=== PATIENT | female | born 1980 | race Caucasian/White ===

== ENCOUNTER 2018-08-17 06:32 | Day surgery (SDC) | payer OTHER ==
[2018-08-16 12:04] LABS: CHLORIDE,CL 105 mmol/L (98-107); SODIUM,NA 141 mmol/L (136-145)
[~2018-08-17 06:32] MED LIST: Lactated Ringers 1,000 ML IV SCH; Sodium Chloride 0.9% 10 ML Syringe FLUSH PRN; Sodium Chloride 0.9% 2.5 ML Syringe FLUSH PRN; ceFAZolin 2 GM in Premix Bag 1 BAG IV ONE
--- NOTE | 2018-08-17 07:00 | PCM.PREANE ---
Preanesthetic Assessment - Anesthesia/Transfusion/Family Hx Anesthesia History: Prior Anesthesia Without Reaction Family History of Anesthesia Reaction: No Transfusion History: No Prior Transfusion(s) Intubation History: Unknown - Review of Systems General: No Symptoms Pulmonary: No Symptoms Cardiovascular: No Symptoms Gastrointestinal: No Symptoms Neurological: No Symptoms Other: Reports: None - Physical Assessment O2 Sat by Pulse Oximetry: 97 Respiratory Rate: 16 Vital Signs: Last Vital Signs Temp 36.4 C 08/17/18 06:50 Pulse 96 08/17/18 06:50 Resp 16 08/17/18 06:50 BP 125/75 08/17/18 06:50 Pulse Ox 97 08/17/18 06:50 Height: 1.64 m Weight: 119.748 kg ASA Class: 2 Mental Status: Alert & Oriented x3 Airway Class: Mallampati = 2 Dentition: Reports: Normal Dentition Thyro-Mental Finger Breadths: 3 Mouth Opening Finger Breadths: 2 ROM/Head Extension: Full Lungs: Clear to Auscultation, Normal Respiratory Effort Cardiovascular: Regular Rate, Regular Rhythm - Lab Values: Laboratory Last Values WBC 8.30 K/uL (4.0-11.0) 08/16/18 11:30 RBC 4.65 M/uL (4.30-5.90) 08/16/18 11:30 Hgb 13.4 g/dL (12.0-16.0) 08/16/18 11:30 Hct 40.8 % (36.0-46.0) 08/16/18 11:30 MCV 87.7 fL (80.0-98.0) 08/16/18 11:30 MCH 28.8 pg (27.0-32.0) 08/16/18 11:30 MCHC 32.8 g/dL (31.0-37.0) 08/16/18 11:30 RDW Std Deviation 40.9 fl (28.0-62.0) 08/16/18 11:30 RDW Coeff of John 13 % (11.0-15.0) 08/16/18 11:30 Plt Count 310 K/uL (150-400) 08/16/18 11:30 MPV 10.00 fL (7.40-12.00) 08/16/18 11:30 Nucleated RBC % 0.0 /100WBC 08/16/18 11:30 Nucleated RBCs # 0 K/uL 08/16/18 11:30 Sodium 141 mmol/L (136-145) 08/16/18 11:30 Potassium 4.4 mmol/L (3.5-5.1) 08/16/18 11:30 Chloride 105 mmol/L (98-107) 08/16/18 11:30 Carbon Dioxide 28.0 mmol/L (21.0-32.0) 08/16/18 11:30 BUN 9 mg/dL (7.0-18.0) 08/16/18 11:30 Creatinine 0.8 mg/dL (0.6-1.0) 08/16/18 11:30 Est Cr Clr Drug Dosing 82.42 mL/min 08/16/18 11:30 Estimated GFR (MDRD) > 60.0 ml/min 08/16/18 11:30 Glucose 85 mg/dL (74-106) 08/16/18 11:30 Calcium 9.7 mg/dL (8.5-10.1) 08/16/18 11:30 HCG, Qual NEGATIVE (NEG) 08/16/18 11:30 Blood Type A POSITIVE 08/16/18 11:30 Antibody Screen NEGATIVE 08/16/18 11:30 - Allergies Allergies/Adverse Reactions: Allergies Allergy/AdvReac Type Severity Reaction Status Date / Time acetaminophen [From Lortab] Allergy Anaphylactic Verified 08/17/18 06:53 Shock hydrocodone [From Lortab] Allergy Anaphylactic Verified 08/17/18 06:54 Shock - Blood Blood Available: No - Anesthesia Plan Pre-Op Medication Ordered: None - Acknowledgements Anesthesia Type Planned: General Anesthesia Pt an Appropriate Candidate for the Planned Anesthesia: Yes Alternatives and Risks of Anesthesia Discussed w Pt/Guardian: Yes Pt/Guardian Understands and Agrees with Anesthesia Plan: Yes PreAnesthesia Questionnaire HEENT History: Reports: Other (See Below) Other HEENT History: wears glasses Gastrointestinal History: Reports: Other (See Below) Other Gastrointestinal History: occasional heartburn Genitourinary History: Reports: None 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: Neurological History: Reports: Migraines Endocrine/Metabolic History: Reports: Obesity/BMI 30+ (BMI 44.6) - Past Surgical History Head Surgeries/Procedures: Reports: None GI Surgical History: Reports: Appendectomy, Cholecystectomy Female Surgical History: Reports: Endometrial Ablation Musculoskeletal Surgical History: Reports: Other (See Below) Other Musculoskeletal Surgeries/Procedures:: left wrist cyst excision, left foot fascia and benign tumor removal - SUBSTANCE USE Smoking Status *Q: Never Smoker Recreational Drug Use History: No - HOME MEDS Home Medications: Home Meds Acetaminophen [Tylenol Extra Strength] 2 tab PO ASDIRECTED PRN 08/12/18 [History ] - CURRENT (IN HOUSE) MEDS Current Meds: Current Medications Lactated Ringer's (Ringers, Lactated) 1,000 mls @ 125 mls/hr IV ASDIRECTED ROGER Last Admin: 08/17/18 06:54 Dose: 125 mls/hr Sodium Chloride (Saline Flush) 10 ml FLUSH ASDIRECTED PRN PRN Reason: Keep Vein Open Sodium Chloride (Saline Flush) 2.5 ml FLUSH ASDIRECTED PRN PRN Reason: Keep Vein Open Discontinued Medications Cefazolin Sodium/Dextrose 2 gm (/ Premix) 50 mls @ 100 mls/hr IV ONETIME ONE Stop: 08/17/18 06:29
[2018-08-17] MEDS ORDERED: Scopolamine 1.5 MG Transdermal Patch TRDERM PRN (07:22)
[2018-08-17] MEDS ORDERED: Scopolamine 1.5 MG Transdermal Patch ONE (07:28)
[2018-08-17] MEDS ORDERED: fentaNYL 100 MCG/2 ML SDV ONE ×2 (07:34→12:43)
[2018-08-17] MEDS ORDERED: Lidocaine 2% 5 ML SDV ONE (07:34)
[2018-08-17] MEDS ORDERED: Midazolam 1 MG/ML 2 ML SDV ONE (07:34)
[2018-08-17] MEDS ORDERED: Propofol 200 MG/20 ML SDV ONE (07:35)
[2018-08-17] MEDS ORDERED: Rocuronium 10 MG/ML 10 ML Syringe ONE (07:35)
[2018-08-17] MEDS ORDERED: fentaNYL 100 MCG/2 ML SDV IVPUSH PRN (08:59)
[2018-08-17] MEDS ORDERED: HYDROmorphone 2 MG/ML SDV IVPUSH ONE (09:00)
[2018-08-17] MEDS ORDERED: Fluorescein 5 ML Vial ONE (09:09)
[2018-08-17] MEDS ORDERED: Ondansetron 4 MG/2 ML SDV ONE ×2 (09:39→10:02)
[2018-08-17] MEDS ORDERED: Dexamethasone 4 MG/ML 5 ML MDV ONE (09:40)
[2018-08-17] MEDS ORDERED: Neostigmine Methylsulfate 1 MG/ML 5 ML Syringe ONE (10:03)
[2018-08-17] MEDS ORDERED: Glycopyrrolate 0.2 MG/ML SDV ONE (10:03)
[2018-08-17] MEDS: fentaNYL 100 MCG/2 ML SDV IVPUSH PRN ×2 (11:30→11:36)
[2018-08-17] MEDS ORDERED: HYDROmorphone 2 MG/ML Syringe ONE (11:42)
[2018-08-17] MEDS ORDERED: Ibuprofen 800 MG Tab PO PRN (12:00)
[2018-08-17] MEDS ORDERED: Promethazine 25 MG/ML SDV IM PRN (12:00)
[2018-08-17] MEDS ORDERED: Ondansetron 4 MG/2 ML SDV IVPUSH PRN (12:00)
[2018-08-17] MEDS ORDERED: Acetaminophen/oxyCODONE 325-5 MG Tab PO PRN (12:00)
[2018-08-17] MEDS ORDERED: Lactated Ringers 1,000 ML IV SCH (12:00)
[2018-08-17] MEDS ORDERED: Morphine 4 MG/ML Syringe IVPUSH PRN (12:00)
--- NOTE | 2018-08-17 12:09 | PCM.OPNOTE ---
- General Post-Op/Procedure Note Date of Surgery/Procedure: 08/17/18 Operative Procedure(s): Vaginal hysterectomy with left partial salpingectomy and cystoscopy Findings: Normal appearing uterus, tubes and ovaries. Left ovary and tube were adherent to the uterine fundus on the left side. Pre Op Diagnosis: Menorrhagia and Uterine fibriod Post-Op Diagnosis: Same Anesthesia Technique: General ET Tube Primary Surgeon: Mireille Varela Secondary Surgeon: Suzi Trevizo Pathology: Uteurs cervix and part of the left tube Fluid Replacement, Intraop: 3,000 Output, Urine Amount: 720 EBL in mLs: 500 Complications: None Condition: Good Free Text/Narrative:: Intake & Output 08/16/18 08/17/18 08/17/18 22:59 06:59 14:59 Output Total 700 Balance -700
[2018-08-17] MEDS: Ketorolac 30 MG/ML SDV IVPUSH SCH ×2 (12:55→19:16)
--- NOTE | 2018-08-17 13:02 | PCM.POSTAN ---
POST ANESTHESIA ASSESSMENT - MENTAL STATUS Mental Status: Alert, Oriented - RESPIRATORY Respiratory Status: Respiratory Rate WNL, Airway Patent, O2 Saturation Stable - CARDIOVASCULAR CV Status: Pulse Rate WNL, Blood Pressure Stable - GASTROINTESTINAL GI Status: No Symptoms - PAIN Pain Score: 6 - POST OP HYDRATION Hydration Status: Adequate & Stable - OBSERVATIONS Free Text/Narrative:: no anesthesia problems
[2018-08-17] MEDS: Acetaminophen/oxyCODONE 325-5 MG Tab PO PRN (15:01)
--- NOTE | 2018-08-17 17:18 | PCM.SURGPN ---
- General Info Date of Service: 08/17/18 POD#: 0 Functional Status: Reports: Pain Controlled, Tolerating Diet - Review of Systems General: Denies: Fever HEENT: Denies: Headaches Pulmonary: Denies: Shortness of Breath, Pleuritic Chest Pain Cardiovascular: Denies: Chest Pain, Palpitations, Dyspnea on Exertion Gastrointestinal: Denies: Abdominal Pain Genitourinary: Denies: Flank Pain - Patient Data Vitals - Most Recent: Last Vital Signs Temp 36.1 C 08/17/18 14:00 Pulse 60 08/17/18 14:00 Resp 16 08/17/18 14:00 BP 103/70 08/17/18 14:00 Pulse Ox 99 08/17/18 14:00 Weight - Most Recent: 264 lb I&O - Last 24 Hours: Intake & Output 08/17/18 08/17/18 08/17/18 06:59 14:59 22:59 Intake Total 6600 Output Total 1420 Balance 5180 Med Orders - Current: Current Medications Fentanyl (Sublimaze) 50 - 100 mcg IVPUSH Q5M PRN PRN Reason: Pain (severe 7-10) Fentanyl (Sublimaze) 50 mcg IVPUSH Q5M PRN PRN Reason: Pain (severe 7-10) Stop: 08/18/18 09:56 Last Admin: 08/17/18 11:36 Dose: 50 mcg Lactated Ringer's (Ringers, Lactated) 1,000 mls @ 125 mls/hr IV ASDIRECTED [facility] Last Admin: 08/17/18 15:01 Dose: 125 mls/hr Ibuprofen (Motrin) 800 mg PO Q6H PRN PRN Reason: Pain (mild 1-3) Ketorolac Tromethamine (Toradol) 30 mg IVPUSH Q6H [facility] Stop: 08/22/18 12:01 Last Admin: 08/17/18 12:55 Dose: 30 mg Morphine Sulfate (Morphine) 4 mg IVPUSH Q2H PRN PRN Reason: Pain (severe 7-10) Ondansetron HCl (Zofran) 4 mg IVPUSH Q6H PRN PRN Reason: Nausea/Vomiting Oxycodone/Acetaminophen (Percocet 325-5 Mg) 1 tab PO Q4H PRN PRN Reason: Pain (moderate 4-6) Last Admin: 08/17/18 15:01 Dose: 1 tab Oxycodone/Acetaminophen (Percocet 325-5 Mg) 2 tab PO Q4H PRN PRN Reason: Pain (moderate 4-6) Promethazine HCl (Phenergan) 25 mg IM Q6H PRN PRN Reason: Nausea/Vomiting Scopolamine (Transderm-Scop) 1.5 mg TRDERM Q72H PRN PRN Reason: Nausea Last Admin: 08/17/18 07:31 Dose: 1.5 mg Discontinued Medications Dexamethasone (Dexamethasone) Confirm Administered Dose 20 mg .ROUTE .STK-MED ONE Stop: 08/17/18 09:41 Fentanyl (Sublimaze) Confirm Administered Dose 100 mcg .ROUTE .STK-MED ONE Stop: 08/17/18 07:35 Fentanyl (Sublimaze) Confirm Administered Dose 100 mcg .ROUTE .STK-MED ONE Stop: 08/17/18 12:44 Fluorescein Sodium (Ak-Fluor) Confirm Administered Dose 5 ml .ROUTE .STK-MED ONE Stop: 08/17/18 09:10 Glycopyrrolate (Robinul) Confirm Administered Dose 0.8 mg .ROUTE .STK-MED ONE Stop: 08/17/18 10:04 Hydromorphone HCl (Dilaudid) 2 mg IVPUSH ONETIME ONE Stop: 08/17/18 09:01 Last Admin: 08/17/18 11:42 Dose: 2 mg Hydromorphone HCl (Dilaudid) Confirm Administered Dose 2 mg .ROUTE .STK-MED ONE Stop: 08/17/18 11:43 Cefazolin Sodium/Dextrose 2 gm (/ Premix) 50 mls @ 100 mls/hr IV ONETIME ONE Stop: 08/17/18 06:29 Lactated Ringer's (Ringers, Lactated) 1,000 mls @ 125 mls/hr IV ASDIRECTED ROGER Last Admin: 08/17/18 06:54 Dose: 125 mls/hr Lidocaine (Xylocaine-Mpf 2%) Confirm Administered Dose 5 ml .ROUTE .STK-MED ONE Stop: 08/17/18 07:35 Midazolam HCl (Versed 1 Mg/Ml) Confirm Administered Dose 2 mg .ROUTE .STK-MED ONE Stop: 08/17/18 07:35 Neostigmine Methylsulfate (Neostigmine) Confirm Administered Dose 5 mg .ROUTE .STK-MED ONE Stop: 08/17/18 10:04 Ondansetron HCl (Zofran) Confirm Administered Dose 8 mg .ROUTE .STK-MED ONE Stop: 08/17/18 09:40 Ondansetron HCl (Zofran) Confirm Administered Dose 8 mg .ROUTE .STK-MED ONE Stop: 08/17/18 10:03 Propofol (Diprivan 20 Ml) Confirm Administered Dose 200 mg .ROUTE .STK-MED ONE Stop: 08/17/18 07:36 Rocuronium Otoe (Zemuron) Confirm Administered Dose 100 mg .ROUTE .STK-MED ONE Stop: 08/17/18 07:36 Scopolamine (Transderm-Scop) Confirm Administered Dose 1.5 mg .ROUTE .STK-MED ONE Stop: 08/17/18 07:29 Sodium Chloride (Saline Flush) 10 ml FLUSH ASDIRECTED PRN PRN Reason: Keep Vein Open Sodium Chloride (Saline Flush) 2.5 ml FLUSH ASDIRECTED PRN PRN Reason: Keep Vein Open - Exam General: Alert, Oriented Lungs: Clear to Auscultation, Normal Respiratory Effort Cardiovascular: Regular Rate, Regular Rhythm GI/Abdominal Exam: Normal Bowel Sounds, Soft, Tender (mild: lower abdomen) Extremities: Non-Tender Psy/Mental Status: Alert, Normal Affect, Normal Mood - Problem List & Annotations (1) S/P vaginal hysterectomy SNOMED Code(s): 205598866, 068271225 Code(s): Z90.710 - ACQUIRED ABSENCE OF BOTH CERVIX AND UTERUS Status: Acute Current Visit: Yes (2) Menorrhagia SNOMED Code(s): 249346161 Code(s): N92.0 - EXCESSIVE AND FREQUENT MENSTRUATION WITH REGULAR CYCLE Status: Acute Current Visit: Yes Qualifiers: Menorrahagia type: with regular cycle Qualified Code(s): N92.0 - Excessive and frequent menstruation with regular cycle - Problem List Review Problem List Initiated/Reviewed/Updated: Yes - My Orders Last 24 Hours: Active Orders 24 hr Category Date Time Status Patient Status [ADT] Routine ADT 08/17/18 12:01 Active Antiembolic Devices [RC] PER UNIT ROUTINE Care 08/17/18 05:00 Inactive Antiembolic Devices [RC] PER UNIT ROUTINE Care 08/17/18 12:01 Active Intake and Output [RC] PER UNIT ROUTINE Care 08/17/18 12:03 Active Notify Provider Intake and Out [RC] ASDIRECTED Care 08/17/18 12:01 Active Notify Provider Vital Signs [RC] ASDIRECTED Care 08/17/18 12:01 Active Oxygen Therapy [RC] ASDIRECTED Care 08/17/18 12:01 Active Procedure Prep Instructions [RC] PER UNIT ROUTINE Care 08/17/18 05:00 Inactive Procedure Site Prep Instruct [RC] PER UNIT ROUTINE Care 08/17/18 05:00 Inactive RT Incentive Spirometry [RC] Q2HWA Care 08/17/18 12:01 Active Up With Assistance [RC] PER UNIT ROUTINE Care 08/17/18 12:01 Active Up ad Malgorzata [RC] PER UNIT ROUTINE Care 08/17/18 12:01 Active Urinary Catheter Removal [RC] Per Unit Routine Care 08/17/18 12:01 Active Verify Patient Consent Obtain [RC] PER UNIT ROUTINE Care 08/17/18 05:00 Inactive Vital Signs [RC] PER UNIT ROUTINE Care 08/17/18 05:00 Inactive Vital Signs [RC] PER UNIT ROUTINE Care 08/17/18 12:01 Active Regular Diet [DIET] Diet 08/17/18 Dinner Active BASIC METABOLIC PANEL,BMP [CHEM] AM Lab 08/18/18 05:11 Ordered CBC WITH AUTO DIFF [HEME] AM Lab 08/18/18 05:11 Ordered Acetaminophen/oxyCODONE [Percocet 325-5 MG] Med 08/17/18 12:00 Active 1 tab PO Q4H PRN Acetaminophen/oxyCODONE [Percocet 325-5 MG] Med 08/17/18 12:00 Active 2 tab PO Q4H PRN Ibuprofen [Motrin] Med 08/17/18 12:00 Active 800 mg PO Q6H PRN Ketorolac [Toradol] Med 08/17/18 12:00 Active 30 mg IVPUSH Q6H Lactated Ringers [Ringers, Lactated] 1,000 ml Med 08/17/18 12:00 Active IV ASDIRECTED Morphine Med 08/17/18 12:00 Active 4 mg IVPUSH Q2H PRN Ondansetron [Zofran] Med 08/17/18 12:00 Active 4 mg IVPUSH Q6H PRN Promethazine [Phenergan] Med 08/17/18 12:00 Active 25 mg IM Q6H PRN Scopolamine [Transderm-Scop] Med 08/17/18 07:22 Active 1.5 mg TRDERM Q72H PRN fentaNYL [Sublimaze] Med 08/17/18 08:59 Active 50 - 100 mcg IVPUSH Q5M PRN fentaNYL [Sublimaze] Med 08/17/18 09:56 Active 50 mcg IVPUSH Q5M PRN Peripheral IV Discontinue [OM.PC] Routine Oth 08/17/18 12:01 Ordered Remove Vaginal Packing [OM.PC] Per Unit Routine Oth 08/17/18 12:03 Ordered Sequential Compression Device [OM.PC] Per Unit Routine Oth 08/17/18 12:01 Ordered Resuscitation Status Routine Resus Stat 08/17/18 12:00 Ordered Medication Orders Fentanyl (Sublimaze) 50 - 100 mcg IVPUSH Q5M PRN PRN Reason: Pain (severe 7-10) Fentanyl (Sublimaze) 50 mcg IVPUSH Q5M PRN PRN Reason: Pain (severe 7-10) Stop: 08/18/18 09:56 Last Admin: 08/17/18 11:36 Dose: 50 mcg Admin: 08/17/18 11:30 Dose: 50 mcg Lactated Ringer's (Ringers, Lactated) 1,000 mls @ 125 mls/hr IV ASDIRECTED [facility] Last Admin: 08/17/18 15:01 Dose: 125 mls/hr Ibuprofen (Motrin) 800 mg PO Q6H PRN PRN Reason: Pain (mild 1-3) Ketorolac Tromethamine (Toradol) 30 mg IVPUSH Q6H [facility] Stop: 08/22/18 12:01 Last Admin: 08/17/18 12:55 Dose: 30 mg Morphine Sulfate (Morphine) 4 mg IVPUSH Q2H PRN PRN Reason: Pain (severe 7-10) Ondansetron HCl (Zofran) 4 mg IVPUSH Q6H PRN PRN Reason: Nausea/Vomiting Oxycodone/Acetaminophen (Percocet 325-5 Mg) 1 tab PO Q4H PRN PRN Reason: Pain (moderate 4-6) Last Admin: 02/04/19 15:01 Dose: 1 tab Oxycodone/Acetaminophen (Percocet 325-5 Mg) 2 tab PO Q4H PRN PRN Reason: Pain (moderate 4-6) Promethazine HCl (Phenergan) 25 mg IM Q6H PRN PRN Reason: Nausea/Vomiting Scopolamine (Transderm-Scop) 1.5 mg TRDERM Q72H PRN PRN Reason: Nausea Last Admin: 08/17/18 07:31 Dose: 1.5 mg - Assessment Assessment (Free Text/Narrative):: POD#0 s/p vaginal hysterectomy with left partial salpingectomy and cystoscopy clinically stable and afebrile - Plan Plan (Free Text/Narrative):: Encourage to use incentive spirometer Remove Phillips and vaginal packing tonight Aim discharge in the am
[2018-08-17] MEDS ORDERED: Morphine 2 MG/ML Syringe IVPUSH PRN (17:23)
[2018-08-18] MEDS: Ketorolac 30 MG/ML SDV IVPUSH SCH (00:13)
--- NOTE | 2018-08-18 01:28 | OR ---
SURGEON: Mireille Varela MD DATE OF PROCEDURE: 08/17/2018 BOAT LABORER: Dr. Suzi Trevizo. PREOPERATIVE DIAGNOSES: 1. Menorrhagia. 2. Fibroid uterus. POSTOPERATIVE DIAGNOSES: 1. Menorrhagia. 2. Fibroid uterus. PROCEDURE: Vaginal hysterectomy with partial left salpingectomy and cystoscopy. ESTIMATED BLOOD LOSS: 500 mL. ANESTHESIA: General endotracheal. INTRAVENOUS FLUIDS: 3800 mL of crystalloid. URINE OUTPUT: 750 mL. COMPLICATIONS: None. FINDINGS: 8 to 9 weeks' size uterus. Left ovary and tube was found to be adherent to the fundus of the uterus. Normal-appearing ovaries bilaterally. No bladder mucosa trauma and efflux of florescence dye seen from both ureteral orifices DISPOSITION: Patient was taken to the recovery room in a stable condition. PROCEDURE IN DETAIL: The patient is a 38-year-old lady who has had ongoing difficulties with menorrhagia status post endometrial ablation. Recent ultrasound showed a small intramural fibroid, office-based Pipelle biopsy retrieved scanty amount of endometrial tissue which was reported as benign. Management options were discussed with the patient, and she opted to proceed with surgical intervention in form of hysterectomy. She opted to retain ovaries and tubes if they normal in appearance intraoperatively. Surgical expectations, alternatives, and consents were obtained. The patient was taken to the operating room where induction of general anesthesia was performed without difficulty. She was then placed in modified dorsal lithotomy position and was prepped and draped in the usual sterile fashion for vaginal surgery. Phillips was placed to gravity. SCDs were in the lower extremities and she received 2 g of Ancef. Appropriate time- out was then performed. A medium weighted speculum was placed into the posterior wall of the vagina and the vaginal wall was retracted anteriorly and laterally with sidewall retractors. The cervix was grasped with a Tejas clamp and the cervix was then circumscribed with electrocautery using the Bovie. The mucosa anteriorly and posteriorly were then gently, sharply, and bluntly dissected off the underlying peritoneum. The posterior peritoneum was then entered sharply creating a posterior colpotomy and the weighted speculum was then exchanged for a longer weighted speculum. Anteriorly, gentle blunt dissection was performed until the peritoneal layer was identified, tilted upwards, and entered sharply and then the bladder was then retracted cephalad using the vaginal wall retractor. In serial fashion, Dequan clamps were utilized on either side to secure the uterosacral ligaments, the base of the cardinal ligaments and the broad ligaments. The left ovary and tube were found to be flimsy adherent to the fundus of the uterus on the left side. I was able to gently tease of the ovary which was normal in appearance, but the tube was firmly adherent to the fundus of the uterus, hence while the uterotubal ovarian ligament on that side was being transected, the left tube was also removed along with that pedicle. All sutures were ligated with 2-0 Vicryl. Once the uterus was freed, it was removed and from the operating site. Sponge stick was then placed in order to visualize the operative site well and noted was that the patient had very friable tissues and that the posterior peritoneum had shed off from its base and this area was bleeding. The posterior peritoneum was then identified and clamped with Allis clamps and this was oversewn with 2-0 Vicryl starting from the left to the right side. The pedicles were then all inspected, and on the left side was noted a bleeder that was grabbed with Dequan clamp and suture ligated with 2-0 Vicryl. Once this was performed, the area was hemostatic. The pedicles were then inspected for hemostasis. The retained uterosacral ligament pedicles were then transfixed on ipsilateral side to the apices. Once the operating field was found to be hemostatic, the vaginal cuff was then closed in a running fashion using 0 Vicryl suture. The Phillips catheter was removed and the patient was given IV fluorescein. The cystoscopy was performed and there were no injuries to the bladder mucosa and both ureteral orifices were visualized with urine exuding from them freely. The Phillips balloon was reinserted. The vaginal mucosa was reexamined and no active bleeding was noted, but due to the fact that the posterior peritoneum had been oozing, I have decided to insert the vaginal packing, this was placed. The patient was then taken to the recovery room in stable condition. She tolerated the procedure well. Sponge, instrument, and needle counts were reported as correct. ADUMVIV / MODL /[id number] CHIO
[2018-08-18 05:17] LABS: CHLORIDE,CL 107 mmol/L (98-107); SODIUM,NA 140 mmol/L (136-145)
--- NOTE | 2018-08-18 06:36 | PCM.SURGPN ---
- General Info Date of Service: 08/18/18 POD#: 1 Functional Status: Reports: Pain Controlled, Tolerating Diet, Ambulating, Urinating - Review of Systems General: Denies: Fever, Weakness HEENT: Denies: Headaches Pulmonary: Denies: Shortness of Breath, Pleuritic Chest Pain Cardiovascular: Denies: Chest Pain, Palpitations, Dyspnea on Exertion Gastrointestinal: Denies: Abdominal Pain, Nausea, Vomiting Genitourinary: Denies: Dysuria, Incontinence, Flank Pain - Patient Data Vitals - Most Recent: Last Vital Signs Temp 36.4 C 08/18/18 03:00 Pulse 77 08/17/18 15:35 Resp 16 08/18/18 03:00 BP 118/60 08/18/18 03:00 Pulse Ox 95 08/18/18 03:00 Weight - Most Recent: 264 lb I&O - Last 24 Hours: Intake & Output 08/17/18 08/17/18 08/18/18 14:59 22:59 06:59 Intake Total 6600 600 800 Output Total 7552 103 2969 Balance 5180 -350 -1350 Lab Results Last 24 Hrs: Laboratory Results - last 24 hr 08/18/18 08/18/18 Range/Units 04:34 04:34 WBC 12.88 H (4.0-11.0) K/uL RBC 3.87 L (4.30-5.90) M/uL Hgb 11.1 L (12.0-16.0) g/dL Hct 33.9 L (36.0-46.0) % MCV 87.6 (80.0-98.0) fL MCH 28.7 (27.0-32.0) pg MCHC 32.7 (31.0-37.0) g/dL RDW Std Deviation 41.0 (28.0-62.0) fl RDW Coeff of John 13 (11.0-15.0) % Plt Count 284 (150-400) K/uL MPV 10.00 (7.40-12.00) fL Neut % (Auto) 85.2 H (48.0-80.0) % Lymph % (Auto) 10.7 L (16.0-40.0) % [place] % (Auto) 4.1 (0.0-15.0) % Eos % (Auto) 0.0 (0.0-7.0) % Baso % (Auto) 0.0 (0.0-1.5) % Neut # (Auto) 11.0 H (1.4-5.7) K/uL Lymph # (Auto) 1.4 (0.6-2.4) K/uL [place] # (Auto) 0.5 (0.0-0.8) K/uL Eos # (Auto) 0.0 (0.0-0.7) K/uL Baso # (Auto) 0.0 (0.0-0.1) K/uL Nucleated RBC % 0.0 /100WBC Nucleated RBCs # 0 K/uL Sodium 140 (136-145) mmol/L Potassium 4.1 (3.5-5.1) mmol/L Chloride 107 (98-107) mmol/L Carbon Dioxide 26.9 (21.0-32.0) mmol/L BUN 7 (7.0-18.0) mg/dL Creatinine 0.7 (0.6-1.0) mg/dL Est Cr Clr Drug Dosing 94.19 mL/min Estimated GFR (MDRD) > 60.0 ml/min Glucose 127 H (74-106) mg/dL Calcium 9.1 (8.5-10.1) mg/dL Med Orders - Current: Current Medications Fentanyl (Sublimaze) 50 - 100 mcg IVPUSH Q5M PRN PRN Reason: Pain (severe 7-10) Fentanyl (Sublimaze) 50 mcg IVPUSH Q5M PRN PRN Reason: Pain (severe 7-10) Stop: 08/18/18 09:56 Last Admin: 08/17/18 11:36 Dose: 50 mcg Lactated Ringer's (Ringers, Lactated) 1,000 mls @ 125 mls/hr IV ASDIRECTED [facility] Last Admin: 08/17/18 15:01 Dose: 125 mls/hr Ibuprofen (Motrin) 800 mg PO Q6H PRN PRN Reason: Pain (mild 1-3) Last Admin: 08/18/18 01:38 Dose: 800 mg Ketorolac Tromethamine (Toradol) 30 mg IVPUSH Q6H [facility] Stop: 08/22/18 12:01 Last Admin: 08/18/18 00:13 Dose: 30 mg Morphine Sulfate (Morphine) 4 mg IVPUSH Q2H PRN PRN Reason: Pain (severe 7-10) Last Admin: 08/17/18 17:33 Dose: 4 mg Ondansetron HCl (Zofran) 4 mg IVPUSH Q6H PRN PRN Reason: Nausea/Vomiting Oxycodone/Acetaminophen (Percocet 325-5 Mg) 1 tab PO Q4H PRN PRN Reason: Pain (moderate 4-6) Last Admin: 08/17/18 15:01 Dose: 1 tab Oxycodone/Acetaminophen (Percocet 325-5 Mg) 2 tab PO Q4H PRN PRN Reason: Pain (moderate 4-6) Promethazine HCl (Phenergan) 25 mg IM Q6H PRN PRN Reason: Nausea/Vomiting Scopolamine (Transderm-Scop) 1.5 mg TRDERM Q72H PRN PRN Reason: Nausea Last Admin: 08/17/18 07:31 Dose: 1.5 mg Discontinued Medications Dexamethasone (Dexamethasone) Confirm Administered Dose 20 mg .ROUTE .STK-MED ONE Stop: 08/17/18 09:41 Fentanyl (Sublimaze) Confirm Administered Dose 100 mcg .ROUTE .STK-MED ONE Stop: 08/17/18 07:35 Fentanyl (Sublimaze) Confirm Administered Dose 100 mcg .ROUTE .STK-MED ONE Stop: 08/17/18 12:44 Fluorescein Sodium (Ak-Fluor) Confirm Administered Dose 5 ml .ROUTE .STK-MED ONE Stop: 08/17/18 09:10 Glycopyrrolate (Robinul) Confirm Administered Dose 0.8 mg .ROUTE .STK-MED ONE Stop: 08/17/18 10:04 Hydromorphone HCl (Dilaudid) 2 mg IVPUSH ONETIME ONE Stop: 08/17/18 09:01 Last Admin: 08/17/18 11:42 Dose: 2 mg Hydromorphone HCl (Dilaudid) Confirm Administered Dose 2 mg .ROUTE .STK-MED ONE Stop: 08/17/18 11:43 Last Admin: 08/17/18 17:54 Dose: Not Given Cefazolin Sodium/Dextrose 2 gm (/ Premix) 50 mls @ 100 mls/hr IV ONETIME ONE Stop: 08/17/18 06:29 Last Admin: 08/17/18 17:54 Dose: Not Given Lactated Ringer's (Ringers, Lactated) 1,000 mls @ 125 mls/hr IV ASDIRECTED [facility] Last Admin: 08/17/18 06:54 Dose: 125 mls/hr Lidocaine (Xylocaine-Mpf 2%) Confirm Administered Dose 5 ml .ROUTE .STK-MED ONE Stop: 08/17/18 07:35 Midazolam HCl (Versed 1 Mg/Ml) Confirm Administered Dose 2 mg .ROUTE .STK-MED ONE Stop: 08/17/18 07:35 Morphine Sulfate (Morphine) 4 mg IVPUSH Q2H PRN PRN Reason: Pain (severe 7-10) Neostigmine Methylsulfate (Neostigmine) Confirm Administered Dose 5 mg .ROUTE .STK-MED ONE Stop: 08/17/18 10:04 Ondansetron HCl (Zofran) Confirm Administered Dose 8 mg .ROUTE .STK-MED ONE Stop: 08/17/18 09:40 Ondansetron HCl (Zofran) Confirm Administered Dose 8 mg .ROUTE .STK-MED ONE Stop: 08/17/18 10:03 Propofol (Diprivan 20 Ml) Confirm Administered Dose 200 mg .ROUTE .STK-MED ONE Stop: 08/17/18 07:36 Rocuronium [place] (Zemuron) Confirm Administered Dose 100 mg .ROUTE .STK-MED ONE Stop: 08/17/18 07:36 Scopolamine (Transderm-Scop) Confirm Administered Dose 1.5 mg .ROUTE .STK-MED ONE Stop: 08/17/18 07:29 Last Admin: 08/17/18 17:54 Dose: Not Given Sodium Chloride (Saline Flush) 10 ml FLUSH ASDIRECTED PRN PRN Reason: Keep Vein Open Sodium Chloride (Saline Flush) 2.5 ml FLUSH ASDIRECTED PRN PRN Reason: Keep Vein Open - Exam Wound/Incisions: No Drainage General: Alert, Oriented HEENT: Pupils Equal Neck: Supple Lungs: Clear to Auscultation, Normal Respiratory Effort Cardiovascular: Regular Rate, Regular Rhythm GI/Abdominal Exam: Normal Bowel Sounds, Soft, Non-Tender Extremities: Non-Tender, No Pedal Edema Skin: Warm Psy/Mental Status: Alert, Normal Affect, Normal Mood - Problem List & Annotations (1) S/P vaginal hysterectomy SNOMED Code(s): 252737434, 948754929 Code(s): Z90.710 - ACQUIRED ABSENCE OF BOTH CERVIX AND UTERUS Status: Acute Current Visit: Yes (2) Menorrhagia SNOMED Code(s): 558352257 Code(s): N92.0 - EXCESSIVE AND FREQUENT MENSTRUATION WITH REGULAR CYCLE Status: Resolved Current Visit: Yes Qualifiers: Menorrahagia type: with regular cycle Qualified Code(s): N92.0 - Excessive and frequent menstruation with regular cycle - Problem List Review Problem List Initiated/Reviewed/Updated: Yes - My Orders Last 24 Hours: Active Orders 24 hr Category Date Time Status Patient Status [ADT] Routine ADT 08/17/18 12:01 Active Antiembolic Devices [RC] PER UNIT ROUTINE Care 08/17/18 12:01 Active Intake and Output [RC] PER UNIT ROUTINE Care 08/17/18 12:03 Active Notify Provider Intake and Out [RC] ASDIRECTED Care 08/17/18 12:01 Active Notify Provider Vital Signs [RC] ASDIRECTED Care 08/17/18 12:01 Active Oxygen Therapy [RC] ASDIRECTED Care 08/17/18 12:01 Active RT Incentive Spirometry [RC] Q2HWA Care 08/17/18 12:01 Active Up With Assistance [RC] PER UNIT ROUTINE Care 08/17/18 12:01 Active Up ad [place] [RC] PER UNIT ROUTINE Care 08/17/18 12:01 Active Urinary Catheter Removal [RC] Per Unit Routine Care 08/17/18 12:01 Active Vital Signs [RC] PER UNIT ROUTINE Care 08/17/18 12:01 Active Regular Diet [DIET] Diet 08/17/18 Dinner Active Acetaminophen/oxyCODONE [Percocet 325-5 MG] Med 08/17/18 12:00 Active 1 tab PO Q4H PRN Acetaminophen/oxyCODONE [Percocet 325-5 MG] Med 08/17/18 12:00 Active 2 tab PO Q4H PRN Ibuprofen [Motrin] Med 08/17/18 12:00 Active 800 mg PO Q6H PRN Ketorolac [Toradol] Med 08/17/18 12:00 Active 30 mg IVPUSH Q6H Lactated Ringers [Ringers, Lactated] 1,000 ml Med 08/17/18 12:00 Active IV ASDIRECTED Morphine Med 08/17/18 17:23 Active 4 mg IVPUSH Q2H PRN Ondansetron [Zofran] Med 08/17/18 12:00 Active 4 mg IVPUSH Q6H PRN Promethazine [Phenergan] Med 08/17/18 12:00 Active 25 mg IM Q6H PRN Scopolamine [Transderm-Scop] Med 08/17/18 07:22 Active 1.5 mg TRDERM Q72H PRN fentaNYL [Sublimaze] Med 08/17/18 08:59 Active 50 - 100 mcg IVPUSH Q5M PRN fentaNYL [Sublimaze] Med 08/17/18 09:56 Active 50 mcg IVPUSH Q5M PRN Peripheral IV Discontinue [OM.PC] Routine Oth 08/17/18 12:01 Ordered Remove Vaginal Packing [OM.PC] Per Unit Routine Oth 08/17/18 12:03 Ordered Sequential Compression Device [OM.PC] Per Unit Routine Oth 08/17/18 12:01 Ordered Resuscitation Status Routine Resus Stat 08/17/18 12:00 Ordered Medication Orders Fentanyl (Sublimaze) 50 - 100 mcg IVPUSH Q5M PRN PRN Reason: Pain (severe 7-10) Fentanyl (Sublimaze) 50 mcg IVPUSH Q5M PRN PRN Reason: Pain (severe 7-10) Stop: 08/18/18 09:56 Last Admin: 08/17/18 11:36 Dose: 50 mcg Admin: 08/17/18 11:30 Dose: 50 mcg Lactated Ringer's (Ringers, Lactated) 1,000 mls @ 125 mls/hr IV ASDIRECTED [facility] Last Admin: 08/17/18 15:01 Dose: 125 mls/hr Ibuprofen (Motrin) 800 mg PO Q6H PRN PRN Reason: Pain (mild 1-3) Last Admin: 08/18/18 01:38 Dose: 800 mg Ketorolac Tromethamine (Toradol) 30 mg IVPUSH Q6H [facility] Stop: 08/22/18 12:01 Last Admin: 08/18/18 00:13 Dose: 30 mg Admin: 08/17/18 19:16 Dose: 30 mg Admin: 08/17/18 12:55 Dose: 30 mg Morphine Sulfate (Morphine) 4 mg IVPUSH Q2H PRN PRN Reason: Pain (severe 7-10) Last Admin: 08/17/18 17:33 Dose: 4 mg Ondansetron HCl (Zofran) 4 mg IVPUSH Q6H PRN PRN Reason: Nausea/Vomiting Oxycodone/Acetaminophen (Percocet 325-5 Mg) 1 tab PO Q4H PRN PRN Reason: Pain (moderate 4-6) Last Admin: 08/17/18 15:01 Dose: 1 tab Oxycodone/Acetaminophen (Percocet 325-5 Mg) 2 tab PO Q4H PRN PRN Reason: Pain (moderate 4-6) Promethazine HCl (Phenergan) 25 mg IM Q6H PRN PRN Reason: Nausea/Vomiting Scopolamine (Transderm-Scop) 1.5 mg TRDERM Q72H PRN PRN Reason: Nausea Last Admin: 08/17/18 07:31 Dose: 1.5 mg - Assessment Assessment (Free Text/Narrative):: POD#1 vaginal hysterectomy, left partial salpingectomy and cystoscopy Doing well Hgb stable at 11g/dl. Creat and BUN stable and normal - Plan Plan (Free Text/Narrative):: Discharge plans reviewed with patient Nothing in the vagina for 6 weeks Bleeding and infection precautions reviewed Follow up in the clinic in 2 and 6 weeks scheduled
[2018-08-18] MEDS: Acetaminophen/oxyCODONE 325-5 MG Tab PO PRN (06:40)
== END 2018-08-18 08:45 | disposition home or self-care (01) ==
LOC: MW.SDS 06:32 → MW.OB 13:27 → MW.SDS 08-18 08:45
PROVIDERS: ATTEND Obstetrics & Gynecology
DX: N92.0 Excessive and frequent menstruation with regular cycle (principal); E66.9 Obesity, unspecified; Z68.41 Body mass index [BMI] 40.0-44.9, adult; Z79.899 Other long term (current) drug therapy; Z88.5 Allergy status to narcotic agent
CPT/HCPCS: 36415; 58262; 80048; 84703; 85025; 85027; 86850; 86900; 86901; A9270; J1100; J1170; J1885; J2001; J2250; J2270; J2405; J2704; J3010; J3490; J7120; 88304; 88307